=== PATIENT | male | born 1980 | race Caucasian/White ===

== ENCOUNTER → 2022-04-01 13:47 | Outpatient (CLI) | payer OTHER ==
[~2022-04-01 13:47] MED LIST: AMOX1TAB12 PO
== END | disposition home or self-care (01) ==
LOC: LAB 13:47
PROVIDERS: ATTEND Obstetrics & Gynecology
DX: Z20.828 Contact with and (suspected) exposure to other viral communicable diseases (principal); Z20.818 Contact with and (suspected) exposure to other bacterial communicable diseases